=== PATIENT | female | born 1955 | race African-American/Black ===

== ENCOUNTER 2017-07-22 00:39 | Emergency (ER) | payer MEDICARE ==
[~2017-07-22] VITALS: Ht 157.5 cm; Wt 76.9 kg
[~2017-07-22 00:39] MED LIST: ALBU2.5V NPPB; ALPR0.25 PO; AMLO5TAB2 PO; ASPI-496 PO; ASPI-515 PO; ATEN50TA41 PO; ATOR10TA9 PO; ATOR20TA PO; AZIT500T5 PO; CHOL500045 PO; GLIM4TAB2 PO; GUAI200T3 PO; LACT1CAP24 PO; LEVO500T47 PO; METF10002 PO; NIAC10002 PO; PRED10TA PO; PRED20TA PO; TIOT18CA INH; TRIA1TAB3 PO
[2017-07-22] MEDS ORDERED: ALBUTEROL SULFATE 2.5 MG/3 ML ONE (01:27)
[2017-07-22] MEDS ORDERED: ALBUTEROL 0.5%, 20ML NPPB SCH (01:30)
[2017-07-22 01:56] LABS: ASPARTATE AMINO TRANSFERASE 16 U/L (15-37); BLOOD UREA NITROGEN 22 mg/dL (7-18)
[2017-07-22 02:00] LABS: HEMOGLOBIN 12.9 g/dL (11.7-16.4); WHITE BLOOD COUNT 9.8 x10^3/uL (3.4-10)
[2017-07-22 02:03] LABS: IS PT STATUS REG ER OR PRE ER? YES
[2017-07-22 02:19] LABS: DIFF TOTAL CELLS COUNTED 100 CELL DIFF
[2017-07-22 02:26] LABS: ANISOCYTOSIS 1+; VERIFY COUNTS? YES
[2017-07-22 02:27] LABS: LARGE PLATELETS 1+
[2017-07-22 02:30] VITALS: BP 118/62
== END 2017-07-22 03:33 | disposition home or self-care (01) ==
LOC: ED 03:12
DX: J44.1 Chronic obstructive pulmonary disease with (acute) exacerbation (principal); I10 Essential (primary) hypertension; E11.9 Type 2 diabetes mellitus without complications
CPT/HCPCS: 36415; 71010; 80053; 83690; 84484; 85025; 93005; 94640; 99285; J7512

== ENCOUNTER 2018-01-11 12:24 | Emergency (ER) | payer MEDICARE ==
[~2018-01-11] VITALS: Ht 157.5 cm; Wt 73.5 kg
[~2018-01-11 12:24] MED LIST changes: +GUAI600T31 PO; +OSEL75CA PO
[2018-01-11 12:40] VITALS: BP 110/73
[2018-01-11] MEDS ORDERED: KETOROLAC 30 MG/1 ML ONE (13:13)
[2018-01-11] MEDS ORDERED: METHOCARBAMOL 750 MG TABLET ONE (13:13)
[2018-01-11] MEDS ORDERED: TRIA1CAP3 PO (13:29)
[2018-01-11] MEDS ORDERED: KETOROLAC 30 MG/1 ML IM ONE (13:30)
[2018-01-11] MEDS ORDERED: METHOCARBAMOL 750 MG TABLET PO ONE (13:30)
[2018-01-11] MEDS ORDERED: DIAZEPAM 5 MG TABLET PO ONE (14:00)
[2018-01-11] MEDS ORDERED: DIAZEPAM 5 MG TABLET ONE (14:03)
== END 2018-01-11 14:11 | disposition home or self-care (01) ==
LOC: ED 13:00
DX: M25.511 Pain in right shoulder (principal); J20.9 Acute bronchitis, unspecified; E78.00 Pure hypercholesterolemia, unspecified; I10 Essential (primary) hypertension; E11.9 Type 2 diabetes mellitus without complications; Z86.718 Personal history of other venous thrombosis and embolism
CPT/HCPCS: 71046; 73030; 96372; 99284; J1885

== ENCOUNTER 2018-08-17 15:02 | Emergency (ER) | payer MEDICARE ==
[~2018-08-17] VITALS: Ht 157.5 cm; Wt 75.0 kg
[~2018-08-17 15:02] MED LIST changes: -AMLO5TAB2 PO; +AMLO5TAB7 PO; +FLUT1DIS5 IH; +GABA-826 PO; +METH4TAB2 PO; +TRIA1CAP3 PO
[2018-08-17] MEDS ORDERED: HYDROcodone/APAP 5/325 TABLET ONE (15:48)
[2018-08-17 15:54] LABS: MICROSCOPIC AUTO
[2018-08-17 15:55] LABS: CULTURE INDICATED? YES
[2018-08-17] MEDS ORDERED: HYDROcodone/APAP 5/325 TABLET PO ONE (16:00)
[2018-08-17] MEDS ORDERED: SODIUM CHLORIDE FLUSH 10ML SYR IVF ONE (16:00)
[2018-08-17 16:19] LABS: ALBUMIN 3.3 g/dL (3.4-5.0); ANION GAP 11 mmol/L (5-15); CALCIUM 9.2 mg/dL (8.5-10.1); CHLORIDE 107 mmol/L (98-107); CREATININE 0.93 mg/dL (0.55-1.02)
[2018-08-17 16:31] LABS: BASOPHILS # (AUTO) 0.03 x10^3/uL (0-0.1); BASOPHILS % (AUTO) 0 % (0-1); EOSINOPHILS % (AUTO) 6 % (1-7); LYMPHOCYTES # (AUTO) 3.16 x10^3/uL (1-3.4); LYMPHOCYTES % (AUTO) 35 % (22-44); MD MORPH REVIEW ONLY; MEAN CORPUSCULAR HEMOGLOBIN 28.7 pg (27.0-34.8); MEAN PLATELET VOLUME 9.8 fL (7.4-10.4); MONOCYTES # (AUTO) 0.76 x10^3/uL (0.2-0.8); MONOCYTES % (AUTO) 9 % (2-9); NEUTROPHILS # (AUTO) 4.47 x10^3/uL (1.8-6.8); NEUTROPHILS % (AUTO) 50 % (42-75); PLATELET COUNT 328 x10^3/uL (130-400); RED CELL DISTRIBUTION WIDTH 13.8 % (9.6-15.2)
[2018-08-17 16:32] LABS: <PLATELET ESTIMATE> ADEQUATE
[2018-08-17 16:33] LABS: <RBC MORPHOLOGY> NORMAL; LARGE PLATELETS 1+
[2018-08-17] MEDS ORDERED: KETOROLAC 30 MG/1 ML ONE (16:44)
[2018-08-17 16:47] VITALS: BP 120/71
[2018-08-17] MEDS ORDERED: KETOROLAC 30 MG/1 ML IM ONE (17:00)
== END 2018-08-17 17:07 | disposition home or self-care (01) ==
LOC: ED 16:00
DX: N30.00 Acute cystitis without hematuria (principal); I10 Essential (primary) hypertension; E78.00 Pure hypercholesterolemia, unspecified; E11.9 Type 2 diabetes mellitus without complications; J44.9 Chronic obstructive pulmonary disease, unspecified; Z90.710 Acquired absence of both cervix and uterus; Z86.718 Personal history of other venous thrombosis and embolism
CPT/HCPCS: 36415; 74176; 80048; 81001; 82040; 85025; 87086; 87147; 96372; 99285; J1885

== ENCOUNTER 2019-06-26 00:17 | Emergency (ER) | payer MEDICARE ==
[~2019-06-26] VITALS: Ht 157.5 cm; Wt 78.0 kg
[~2019-06-26 00:17] MED LIST changes: +AMLO-150 PO; -AMLO5TAB7 PO; +EPI PEN; -GUAI200T3 PO; +GUAI200T37 PO; -OSEL75CA PO; +OSEL75CA26 PO
[2019-06-26 00:22] VITALS: BP 143/73
[2019-06-26] MEDS ORDERED: AMOXICILLIN/CLAV 875-125MG TABLET PO SCH (01:00)
[2019-06-26] MEDS ORDERED: AMOXICILLIN/CLAV 875-125MG TABLET ONE (01:01)
== END 2019-06-26 01:09 | disposition home or self-care (01) ==
LOC: ED 00:40
DX: J01.00 Acute maxillary sinusitis, unspecified (principal); R59.0 Localized enlarged lymph nodes; I10 Essential (primary) hypertension; E11.9 Type 2 diabetes mellitus without complications; J44.9 Chronic obstructive pulmonary disease, unspecified; E78.00 Pure hypercholesterolemia, unspecified; Z90.710 Acquired absence of both cervix and uterus
CPT/HCPCS: 99283

== ENCOUNTER 2019-10-30 17:15 | Emergency (ER) | payer MEDICARE, OTHER ==
[~2019-10-30] VITALS: Ht 5.1 cm; Wt 73.0 kg
[~2019-10-30 17:15] MED LIST changes: +AZIT500T10 PO; -AZIT500T5 PO; -GLIM4TAB2 PO; +GLIM4TAB4 PO
[2019-10-30] MEDS ORDERED: DEXAMETHASONE 4 MG TABLET ONE (18:10)
--- NOTE | 2019-10-30 18:14 | NUR ---
PO DECADRON GIVEN PER PROVIDER ORDER.
[2019-10-30] MEDS ORDERED: DEXAMETHASONE INTENSOL 1 MG/ML ORAL SOL PO ONE (18:30)
[2019-10-30] MEDS ORDERED: ALBUTEROL SULFATE 2.5 MG/3 ML NPPB ONE (18:30)
[2019-10-30 18:40] LABS: RAPID INFLUENZA A Negative (Negative); RAPID INFLUENZA B Negative (Negative)
[2019-10-30] MEDS ORDERED: ALBUTEROL SULFATE 2.5 MG/3 ML ONE (18:59)
[2019-10-30 19:15] VITALS: BP 129/74
== END 2019-10-30 19:16 | disposition home or self-care (01) ==
LOC: ED 19:10
DX: J45.31 Mild persistent asthma with (acute) exacerbation (principal); B34.9 Viral infection, unspecified; I10 Essential (primary) hypertension; E11.9 Type 2 diabetes mellitus without complications
CPT/HCPCS: 71046; 87400; 94640; 99284; J7613

== ENCOUNTER 2020-07-03 17:46 | Emergency (ER) | payer MEDICARE, OTHER ==
[~2020-07-03] VITALS: Ht 157.5 cm; Wt 65.0 kg
[~2020-07-03 17:46] MED LIST changes: -GLIM4TAB4 PO; +GLIM4TAB8 PO
--- NOTE | 2020-07-03 18:27 | NUR ---
FIRST CONTACT WITH PT. PT STATED "SINCE SUNDAY I'VE HAD SOME PAIN IN MY LOWER BACK. IT'S LIKE A KNIFE IS STABBING ME. I CAN'T PUT PRESURE ON MY LEFT LEG." NO C/O TRAUMA/FALLS. PT'S AOX4. RESPS EVEN AND UNLABORED. DENIES N/V/D. BP/SPO2 MONITORS IN PLACE. CALL LIGHT WITHIN REACH. EDMD AT BEDSIDE EVALUATING AT THIS TIME.
[2020-07-03] MEDS ORDERED: HYDROcodone/APAP 5/325 TABLET PO ONE (18:30)
[2020-07-03] MEDS ORDERED: KETOROLAC 30 MG/1 ML IM ONE (18:30)
[2020-07-03] MEDS ORDERED: HYDROcodone/APAP 5/325 TABLET ONE (18:39)
[2020-07-03] MEDS ORDERED: KETOROLAC 60 MG/2 ML ONE (18:39)
--- NOTE | 2020-07-03 18:41 | NUR ---
PT IN CT AT THIS TIME.
--- NOTE | 2020-07-03 18:58 | NUR ---
PT BACK TO ROOM FROM CT AT THIS TIME.
--- NOTE | 2020-07-03 18:58 | NUR ---
REPORT GIVEN TO SHANAE FLOWERS.
[2020-07-03 18:59] LABS: ANION GAP 5 mmol/L (5-15); CALCIUM 9.6 mg/dL (8.5-10.1); CHLORIDE 107 mmol/L (98-107); CREATININE 1.01 mg/dL (0.55-1.02)
--- NOTE | 2020-07-03 19:33 | NUR ---
PT UP TO BEDSIDE COMMODE WITH STANDBY ASSIST FOR CLEAN CATCH UA. PT STILL COMPLAINING OF PAIN.
[2020-07-03 19:58] LABS: MICROSCOPIC AUTO
[2020-07-03] MEDS ORDERED: DIAZEPAM 5 MG TABLET PO ONE (20:00)
[2020-07-03] MEDS ORDERED: DIAZEPAM 5 MG TABLET ONE (20:01)
--- NOTE | 2020-07-03 20:05 | NUR ---
PT LAYING IN BED, STATES PAIN IS ONLY BAD WHEN SHE TRYS TO MOVE IT. MEDICATED TO MAR, GIVEN EXTENSIVE EDUCATION ABOUT MEDS.
[2020-07-03] MEDS ORDERED: DEXAMETHASONE 4 MG/ML, 1ML ONE (20:58)
[2020-07-03] MEDS ORDERED: DEXAMETHASONE 4 MG/ML, 1ML IVPush ONE (21:00)
[2020-07-03 21:03] VITALS: BP 115/70
== END 2020-07-03 21:30 | disposition home or self-care (01) ==
LOC: ED 21:10
DX: M54.42 Lumbago with sciatica, left side (principal); R35.0 Frequency of micturition; E11.9 Type 2 diabetes mellitus without complications; I10 Essential (primary) hypertension; J44.9 Chronic obstructive pulmonary disease, unspecified; Z86.718 Personal history of other venous thrombosis and embolism; Z90.710 Acquired absence of both cervix and uterus
CPT/HCPCS: 36415; 72131; 80048; 81001; 96372; 96374; 99284; J1100; J1885

== ENCOUNTER 2021-07-23 13:10 | Emergency (ER) | payer MEDICARE ==
[~2021-07-23] VITALS: Ht 157.5 cm; Wt 65.9 kg
[~2021-07-23 13:10] MED LIST changes: -ASPI-515 PO; +ASPI-963 PO
[2021-07-23 14:05] VITALS: BP 116/76
[2021-07-23] MEDS ORDERED: DIAZEPAM 5 MG TABLET ONE (14:09)
[2021-07-23] MEDS ORDERED: KETOROLAC 30 MG/1 ML ONE (14:09)
[2021-07-23] MEDS ORDERED: KETOROLAC 30 MG/1 ML IM ONE (14:30)
[2021-07-23] MEDS ORDERED: DIAZEPAM 5 MG TABLET PO ONE (14:30)
[2021-07-23] MEDS ORDERED: IBUPROFEN 600 MG TABLET PO ONE (15:00)
[2021-07-23] MEDS ORDERED: METHOCARBAMOL 750 MG TABLET PO ONE (15:00)
[2021-07-23] MEDS ORDERED: ONDANSETRON ODT 4 MG PO ONE (15:00)
--- NOTE | 2021-07-23 17:25 | NUR ---
ASSUMED CARE FOR DISCHARGE ONLY: Patient/Caregiver given discharge instructions and they have confirmed that they understand the instructions. Patient ambulatory with steady gait. NAD, all questions answered appropriately, denies additional needs at this time. No personal belongings left in room after discharge.
== END 2021-07-23 18:02 | disposition home or self-care (01) ==
LOC: ED 18:01
DX: S16.1XXA Strain of muscle, fascia and tendon at neck level, initial encounter (principal); I10 Essential (primary) hypertension; E11.9 Type 2 diabetes mellitus without complications; E78.00 Pure hypercholesterolemia, unspecified; J44.9 Chronic obstructive pulmonary disease, unspecified; X58.XXXA Exposure to other specified factors, initial encounter; Y93.89 Activity, other specified; Y92.89 Other specified places as the place of occurrence of the external cause; Y99.8 Other external cause status
CPT/HCPCS: 72050; 96372; 99283; J1885